=== PATIENT | male | born 1995 | race Two or more races ===

== ENCOUNTER 2018-07-05 10:18 | Emergency (ER) | payer OTHER ==
--- NOTE | 2018-07-05 10:57 | EDM.PDOC ---
ED HPI GENERAL MEDICAL PROBLEM - General Chief Complaint: Laceration Stated Complaint: FINGER LAC Time Seen by Provider: 07/05/18 10:30 Source of Information: Reports: Patient, RN Notes Reviewed History Limitations: Reports: No Limitations - History of Present Illness INITIAL COMMENTS - FREE TEXT/NARRATIVE: Patient is a 22-year-old male who presents to the ED for the evaluation of a finger injury. The patient states he was at work and was lifting some heavy metal when it slipped, crushing his right middle finger between the heavy metal. This resulted in a laceration to the anterior side of his right middle finger. Approximately 3.5 cm and does involve the PIP joint. There is a small abrasion to the posterior side of his right finger as well. The patient is not up-to-date with his tetanus booster. The tendon is visible through the wound. Although the patient has normal strength of the finger with extension and flexion. He is neurovascularly intact, with good sensation and cap refill. - Related Data Allergies Allergy/AdvReac Type Severity Reaction Status Date / Time No Known Allergies Allergy Verified 07/05/18 10:43 Home Meds: Home Meds . [No Known Home Meds] 07/05/18 [History] Past Medical History - Past Health History Medical/Surgical History: Denies Medical/Surgical History Social & Family History - Tobacco Use Smoking Status *Q: Current Some Day Smoker Years of Tobacco use: 2 Packs/Tins Daily: 0.2 - Caffeine Use Caffeine Use: Reports: Coffee, Energy Drinks - Recreational Drug Use Recreational Drug Use: No ED ROS GENERAL - Review of Systems Review Of Systems: See Below Constitutional: Reports: No Symptoms HEENT: Reports: No Symptoms Respiratory: Reports: No Symptoms Cardiovascular: Reports: No Symptoms Endocrine: Reports: No Symptoms GI/Abdominal: Reports: No Symptoms : Reports: No Symptoms Musculoskeletal: Reports: No Symptoms Skin: Reports: Wound (3.5cm linear laceration to anterior right middle finger) Neurological: Denies: Numbness, Tingling Psychiatric: Reports: No Symptoms Hematologic/Lymphatic: Reports: No Symptoms Immunologic: Reports: No Symptoms ED EXAM, SKIN/RASH Exam: See Below Exam Limited By: No Limitations General Appearance: Alert, WD/WN, No Apparent Distress Respiratory/Chest: No Respiratory Distress, Lungs Clear, Normal Breath Sounds, No Accessory Muscle Use, Chest Non-Tender Cardiovascular: Normal Peripheral Pulses, Regular Rate, Rhythm, No Murmur Peripheral Pulses: 3+: Radial (L), Radial (R) Extremities: Normal Range of Motion, Non-Tender, Normal Capillary Refill Neurological: Alert, Oriented, Normal Cognition, No Motor/Sensory Deficits Psychiatric: Normal Affect, Normal Mood Skin: Warm, Dry, Normal Color, No Rash, Wound/Incision (3.5 cm linear laceration to anterior R middle finger, near PIP joint, tendon is exposed but not injured) ED SKIN PROCEDURES - Laceration/Wound Repair Right Anterior Digit - 3rd (Middle) Lac/Wound length In cm: 3.5 Appearance: Linear, Clean Distal NVT: Neuro & Vascular Intact, No Tendon Injury Anesthetic Type: Digital (with local to proximal anterior finger base) Local Anesthesia - Lidocaine (Xylocaine): 1% Plain Local Anesthetic Volume: Other (8) Skin Prep: Chlorhexidine (Hibiciens) Saline Irrigation (cc's): 1,000 Exploration/Debridement/Repair: Wound Explored, In a Bloodless Field, Explored to Base Closed with: Sutures, Dermabond (to posterior aspect over PIP for abrasion) # of Sutures: 12 Suture Type: Prolene, Interrupted, Simple Suture Size: 4-0 Sterile Dressing Applied: Nurse Tetanus Status Addressed: Yes Complications: No Course - Vital Signs Last Recorded V/S: Last Vital Signs Temp 97.8 F 07/05/18 10:20 Pulse 94 07/05/18 10:20 Resp 18 07/05/18 10:20 BP 137/76 07/05/18 10:20 Pulse Ox 100 07/05/18 10:20 - Orders/Labs/Meds Orders: Active Orders 24 hr Category Date Time Status Vaccines to be Administered [RC] PER UNIT ROUTINE Care 07/05/18 10:44 Ordered Meds: Medications Discontinued Medications Generic Name Dose Route Start Last Admin Trade Name Freq PRN Reason Stop Dose Admin Diphtheria/Tetanus/Acell Pertussis 0.5 ml 07/05/18 10:44 07/05/18 11:00 Adacel IM 07/05/18 10:45 0.5 ml .ONCE ONE Administration Lidocaine HCl 10 ml 07/05/18 10:39 07/05/18 11:01 Xylocaine 1% INJECT 07/05/18 10:40 10 ml ONETIME ONE Administration - Re-Assessments/Exams Free Text/Narrative Re-Assessment/Exam: 07/05/18 11:26 Patient presents to the ED for the evaluation of a right middle finger injury. This will need to be repaired with sutures, and an aluminum finger splint will be placed after repair so that the wound may heal appropriately as is located near the PIP joint. The finger x-ray did not show any signs of a fracture at this time. Departure - Departure Time of Disposition: 11:54 Disposition: Home, Self-Care 01 Condition: Fair Clinical Impression: Laceration of right middle finger Qualifiers: Encounter type: initial encounter Damage to nail status: without damage Foreign body presence: without foreign body Qualified Code(s): S61.212A - Laceration without foreign body of right middle finger without damage to nail, initial encounter - Discharge Information *PRESCRIPTION DRUG MONITORING PROGRAM REVIEWED*: No *COPY OF PRESCRIPTION DRUG MONITORING REPORT IN PATIENT DAPHNEY: No Instructions: Stitches, Mateusz, or Adhesive Wound Closure, [id number] Referrals: PCP,None [Primary Care Provider] - Forms: ED Department Discharge, ED Return to Work/School Form Additional Instructions: You have been evaluated in the ED for your laceration. Sutures will need to stay in for 14 days. You may return to the ED or clinic for removal. Please wear the finger splint as much as possible so that the wound can heal appropriately, as it is located over your joint. Please keep this area clean and dry, you may cleanse with regular soap and water. No vigorous scrubbing. Please return to ED if your symptoms change or worsen. - My Orders Last 24 Hours: My Active Orders 07/05/18 10:44 Vaccines to be Administered [RC] PER UNIT ROUTINE - Assessment/Plan Last 24 Hours: My Active Orders 07/05/18 10:44 Vaccines to be Administered [RC] PER UNIT ROUTINE
[2018-07-05] MEDS: Diphtheria,Pertussis(Acell),Tetanus Vaccine 0.5 ML Syringe IM ONE (11:00)
[2018-07-05] MEDS: Lidocaine 1% 10 ML MDV INJECT ONE (11:01)
--- NOTE | 2018-07-05 11:46 | CR ---
Right third finger: Four views of the right third finger were obtained. Comparison: No previous study. Soft tissue swelling and soft tissue injury is seen. Joint spaces within the finger are maintained. No acute fracture, dislocation or other bony abnormality is seen. No radiopaque foreign object is seen. Impression: 1. Soft tissue findings. No bony abnormality is appreciated. Diagnostic code #2
== END 2018-07-05 12:19 | disposition home or self-care (01) ==
LOC: JD.ED 10:18
DX: S61.212A Laceration without foreign body of right middle finger without damage to nail, initial encounter (principal); Z23 Encounter for immunization; F17.210 Nicotine dependence, cigarettes, uncomplicated; W20.8XXA Other cause of strike by thrown, projected or falling object, initial encounter; Y99.0 Civilian activity done for income or pay
CPT/HCPCS: 12002; 73140; 90471; 90700; 99283; J2001; 99282

== ENCOUNTER 2021-01-20 20:42 | Emergency (ER) | payer OTHER ==
--- NOTE | 2021-01-20 21:33 | EDM.PDOC ---
ED HPI GENERAL MEDICAL PROBLEM - General Chief Complaint: Chest Pain Stated Complaint: CHEST PAIN Time Seen by Provider: 01/20/21 21:05 Source of Information: Reports: Patient, Significant Other (Girlfriend) History Limitations: Reports: No Limitations - History of Present Illness INITIAL COMMENTS - FREE TEXT/NARRATIVE: Mr. Leal is a very pleasant 25-year-old gentleman who now presents the ED stating that he developed a sudden-onset tight/sharp pain while sitting, watching television last night. He states that the pain was so severe, he felt like crying. He had associated dyspnea, but no associated nausea, diaphoresis, or sense of impending doom. The symptoms resolved on their own after about 10 minutes. He then developed virtually identical symptoms again tonight, twice, again while watching television around 20:00. The first episode lasted about 5 minutes, the second episode about 4. He again had associated dyspnea, but no associated nausea, diaphoresis, or sense of impending doom. Vannesa's symptoms also resolved on their own without treatment. The patient denies similar symptoms prior to last night. The patient states that he has a history of GERD, for which he takes omeprazole on an as-needed basis. Here in the ED, the patient's initial BP is found to be slightly elevated at 146/81, otherwise, he is hemodynamically stable, afebrile, saturating 98% on room air. He states that at this time he is completely pain-free, feeling back to normal. He appears to be comfortable, in no acute distress. Prior to last night, the patient denies having a recent fever, chills, sore throat, ear pain, nasal or sinus congestion, cough, dyspnea, chest pain, palpitations, nausea, vomiting, constipation, diarrhea, abdominal pain, urinary symptoms, recent weight gain or weight loss, recent bloody bowel movements or black bowel movements, recent joint aches, headaches, or rashes. I reviewed the PMHx/PSHx/SocHx, which was reviewed with the patient by the RN. The patient does not have a PCP. He has received 2 COVID vaccinations + an influenza vaccination this season. - Related Data Allergies Allergy/AdvReac Type Severity Reaction Status Date / Time No Known Allergies Allergy Verified 07/05/18 10:43 Home Meds: Home Meds Rizatriptan Benzoate [Rizatriptan] 10 mg PO ASDIRECTED 01/20/21 [History] ondansetron HCL [Zofran] 4 mg PO ASDIRECTED 01/20/21 [History] Past Medical History Gastrointestinal History: Reports: GERD (untreated) Neurological History: Reports: Migraines Endocrine/Metabolic History: Reports: Obesity/BMI 30+ Social & Family History - Tobacco Use Tobacco Use Status *Q: Former Tobacco User Tobacco Use Within Last Twelve Months: Smokeless Tobacco (former chewed), Vaping (former - nicotine) Years of Tobacco use: 8 Packs/Tins Daily: 0.2 Month/Year Tobacco Last Used: Quit 2019 Tobacco Use Comment: Started smoking 2011 - Caffeine Use Caffeine Use: Reports: Coffee, Soda - Alcohol Use Alcohol Use History: Yes Alcohol Use Frequency: Rarely - Recreational Drug Use Recreational Drug Use: No - Living Situation & Occupation Living situation: Reports: Single, with Significant Other (Girlfriend) Occupation: Employed ED ROS GENERAL - Review of Systems Review Of Systems: Comprehensive ROS is negative, except as noted in HPI. ED EXAM, GENERAL - Physical Exam Exam: See Below Exam Limited By: No Limitations General Appearance: Alert, WD/WN, No Apparent Distress Eye Exam: Bilateral Eye: EOMI, Normal Inspection Ears: Normal External Exam, Hearing Grossly Normal Nose: Normal Inspection Throat/Mouth: Normal Inspection, Normal Lips, Normal Voice, No Airway Compromise Head: Atraumatic, Normocephalic Neck: Normal Inspection, Full Range of Motion Respiratory/Chest: No Respiratory Distress, Lungs Clear, Normal Breath Sounds, No Accessory Muscle Use, Chest Non-Tender (including the sternum) Cardiovascular: Normal Peripheral Pulses, Regular Rate, Rhythm, No Edema, No Gallop, No JVD, No Murmur, No Rub Peripheral Pulses: 3+: Radial (L), Radial (R) GI/Abdominal: Normal Bowel Sounds, Soft, Non-Tender (including the epigastrium), No Organomegaly, No Distention, No Abnormal Bruit, No Mass Back Exam: Normal Inspection, Full Range of Motion, NT Extremities: Normal Inspection, Normal Range of Motion, No Pedal Edema, Normal Capillary Refill Neurological: Alert, Oriented, Normal Cognition, No Motor/Sensory Deficits Psychiatric: Normal Affect Skin Exam: Warm, Dry, Intact, Normal Color, No Rash #1 Interpretation EKG Date: 01/20/21 Time: 21:20 Rhythm: NSR Rate (Beats/Min): 94 [place]: Normal P-Wave: Present QRS: Normal ST-T: Normal QT: Normal Comparison: NA - No Prior EKG Course - Vital Signs Last Recorded V/S: Last Vital Signs Temp 36.8 C 01/20/21 21:01 Pulse 98 01/20/21 21:01 Resp 20 01/20/21 21:01 BP 146/81 H 01/20/21 21:01 Pulse Ox 98 01/20/21 21:01 - Orders/Labs/Meds Orders: Active Orders 24 hr Category Date Time Status EKG 12 Lead [EK] Stat Ther 01/20/21 21:00 Ordered Meds: Medications Discontinued Medications Generic Name Dose Route Start Last Admin Trade Name Venita PRN Reason Stop Dose Admin Famotidine 40 mg 01/20/21 21:39 Famotidine 20 Mg Tab PO 01/20/21 21:40 ONETIME STA - Re-Assessments/Exams Free Text/Narrative Re-Assessment/Exam: 01/20/21 21:31 The patient's history and physical examination strongly suggest GERD as the cause of his chest pain. There is nothing about his history that suggests a cardiac etiology. After that was explained to the patient, he declined further work-up beyond the ECG that was obtained at triage. 01/20/21 21:39 The patient's ECG is completely normal, with no suggestion of ischemia. Again, his pain is most likely due to GERD. I will start him on famotidine, and recommend that he begin taking 1 tablet of famotidine twice a day for 1 week, then decrease the dosage to 1 tablet once a day. If his symptoms return after he decreases the dosage, he should return to a twice daily dosage, but if he has symptoms while taking 1 tablet twice a day, he will need to switch to a PPI, and under the circumstances, I recommended that he undergo an EGD. Departure - Departure Time of Disposition: 21:40 Disposition: Home, Self-Care 01 Condition: Good Clinical Impression: GERD (gastroesophageal reflux disease) - Discharge Information *PRESCRIPTION DRUG MONITORING PROGRAM REVIEWED*: Not Applicable *COPY OF PRESCRIPTION DRUG MONITORING REPORT IN PATIENT DAPHNEY: Not Applicable Referrals: PCP,None [Primary Care Provider] - Sandy Cuenca NP [Nurse Practitioner] - Forms: ED Department Discharge Additional Instructions: You were seen in the emergency room after developing sudden onset tight/sharp chest pain last night, then twice again tonight. Work-up in the ER included an ECG, which was completely normal. Based on your history, physical exam, and ER ECG, the cause of your chest pain was most likely acid reflux, also known as GERD. You have been started on the antacid medicine famotidine (Pepcid). Famotidine is available [id number], and generic famotidine is just as good as name- brand Pepcid. We recommend that you take 1 tablet of famotidine every 12 hours for 7 days, then decrease the dosage to 1 tablet once a day. If your GERD symptoms return after decreasing the dosage to once a day, you may return to a twice daily dosage. If you still have symptoms despite taking famotidine twice a day, you may need to switch to a stronger proton pump inhibitor, however, under those circumstances, we recommend that you undergo an EGD (scope of the stomach). In that case, please follow-up with Sandy Cuenca NP, or one of the other providers in the clinic, to establish a PCP and make those arrangements. If any other problems, please do not hesitate to return to the ER. Sepsis Event Note (ED) - Focused Exam Vital Signs: Vital Signs Temp Pulse Resp BP Pulse Ox 01/20/21 21:01 36.8 C 98 20 146/81 H 98 - My Orders Last 24 Hours: My Active Orders 01/20/21 21:00 EKG 12 Lead [EK] Stat - Assessment/Plan Last 24 Hours: My Active Orders 01/20/21 21:00 EKG 12 Lead [EK] Stat
[2021-01-20] MEDS ORDERED: Famotidine 20 MG Tab PO STA (21:39)
== END 2021-01-20 22:04 | disposition home or self-care (01) ==
LOC: JD.ED 20:42
DX: K21.9 Gastro-esophageal reflux disease without esophagitis (principal); E66.9 Obesity, unspecified; Z68.38 Body mass index [BMI] 38.0-38.9, adult; Z87.891 Personal history of nicotine dependence
CPT/HCPCS: 93005; 93010; 99284; 99284-25

== ENCOUNTER 2021-07-06 22:55 | Emergency (ER) | payer OTHER ==
[2021-07-06] MEDS ORDERED: Ketorolac 15 MG/ML SDV IM ONE (23:19)
[2021-07-06] MEDS ORDERED: Benzonatate 100 MG Cap PO ONE (23:19)
[2021-07-07 00:15] LABS: CORONAVIRUS COVID-19 NAA NEGATIVE (NEGATIVE)
== END 2021-07-07 01:05 | disposition home or self-care (01) ==
LOC: JD.ED 22:55
DX: J06.9 Acute upper respiratory infection, unspecified (principal); E66.9 Obesity, unspecified; Z68.38 Body mass index [BMI] 38.0-38.9, adult; Z20.822 Contact with and (suspected) exposure to COVID-19
CPT/HCPCS: 0241U; 36415; 86308; 87070; 96372; 99283; A9270; J1885

== ENCOUNTER 2021-08-03 22:55 | Emergency (ER) | payer OTHER ==
[2021-08-03] MEDS ORDERED: Ondansetron 4 MG/2 ML SDV IVPUSH ONE (23:33)
[2021-08-03] MEDS ORDERED: Lactated Ringers 1,000 ML IV ONE (23:33)
[2021-08-03] MEDS ORDERED: Ketorolac 15 MG/ML SDV IVPUSH ONE (23:33)
== END 2021-08-04 00:58 | disposition home or self-care (01) ==
LOC: JD.ED 22:55
DX: N20.0 Calculus of kidney (principal); E66.9 Obesity, unspecified; Z68.37 Body mass index [BMI] 37.0-37.9, adult
CPT/HCPCS: 36415; 74176; 80053; 81001; 83690; 85025; 96361; 96374; 96375; 99284; J1885; J2405; J7120

== ENCOUNTER 2023-02-18 15:37 | Emergency (ER) | payer OTHER ==
[2023-02-18 16:46] LABS: BASOPHILS ABSOLUTE AUTO 0.1 K/mm3 (0.0-0.2); BASOPHILS PERCENT AUTO 0.8 % (0.0-1.0); EOSINOPHILS ABSOLUTE AUTO 0.1 K/mm3 (0.0-0.4); EOSINOPHILS PERCENT AUTO 1.6 % (0.0-6.0); HEMATOCRIT 44.1 % (42.0-52.0); HEMOGLOBIN 15.8 gm/dl (14.0-18.0); IMMATURE GRAN ABSOLUTE AUTO 0.08 K/mm3 (0.00-0.05); IMMATURE GRAN PERCENT AUTO 0.9 % (0.0-0.4); LYMPHOCYTES ABSOLUTE AUTO 0.5 K/mm3 (1.0-4.8); LYMPHOCYTES PERCENT AUTO 5.9 % (24.0-44.0); MEAN CORPUSCULAR HEMOGLOBIN 30.7 pg (28.0-32.0); MEAN CORPUSCULAR HGB CONC 35.8 g/dl (32.0-36.0); MEAN CORPUSCULAR VOLUME 85.8 fl (83.0-99.0); MEAN PLATELET VOLUME 9.1 fl (9.4-12.4); MONOCYTES ABSOLUTE AUTO 1.2 K/mm3 (0.0-0.8); MONOCYTES PERCENT AUTO 14.2 % (0.0-8.0); NEUTROPHILS ABSOLUTE AUTO 6.7 K/mm3 (1.8-7.7); NEUTROPHILS PERCENT AUTO 76.6 % (41.0-71.0); PLATELET COUNT,PLT 249 K/mm3 (150-400); RED BLOOD CELL COUNT 5.14 M/mm3 (4.52-5.90); WHITE BLOOD CELL COUNT,WBC 8.74 K/mm3 (3.9-11.3)
[2023-02-18 16:48] LABS: CORONAVIRUS COVID-19 NAA POSITIVE (NEGATIVE); INFLUENZA A NAA NEGATIVE (NEGATIVE); RESPIRATORY SYNCYTIAL VIR NAA NEGATIVE (NEGATIVE)
[2023-02-18 16:50] LABS: APPEARANCE,URINE CLEAR (Clear); BILIRUBIN,URINE NEGATIVE (Negative); COLOR,URINE YELLOW (Yellow); GLUCOSE,URINE NEGATIVE (Negative); KETONES,URINE TRACE (Negative); LEUKOCYTE ESTERASE,URINE NEGATIVE (Negative); NITRITE,URINE NEGATIVE (Negative); OCCULT BLOOD,URINE 2+ (Negative); PH,URINE 7.5 (5.0-8.0); PROTEIN,URINE NEGATIVE (Negative)
[2023-02-18 16:53] LABS: BACTERIA,URINE FEW /hpf (FEW); MUCUS,URINE FEW /hpf (FEW); RBC,URINE 40-50 /hpf (0-5); SQUAMOUS EPITHELIAL CELLS,UR 0-5 /hpf (0-5); WBC,URINE 0-5 /hpf (0-5)
[2023-02-18 17:02] LABS: ALBUMIN 3.8 g/dl (3.4-5.0); ANION GAP 14.4 (5-15); BILIRUBIN TOTAL 0.4 mg/dL (0.2-1.0); BUN/CREATININE RATIO 14.5 (14-18); C-REACTIVE PROTEIN 1.6 mg/dL (<1.0); CREATININE 1.1 mg/dL (0.7-1.3); EST CRCL DRUG DOSING (CG) 87.75 mL/min; MAGNESIUM 1.5 mg/dL (1.8-2.4); POTASSIUM,K 3.4 mEq/L (3.5-5.1); PROTEIN TOTAL,TP 7.7 g/dl (6.4-8.2)
== END 2023-02-18 18:03 | disposition home or self-care (01) ==
LOC: JD.ED 15:37
DX: U07.1 COVID-19 (principal); R31.9 Hematuria, unspecified; E66.9 Obesity, unspecified; Z68.38 Body mass index [BMI] 38.0-38.9, adult
CPT/HCPCS: 0241U; 36415; 80053; 81001; 83735; 85025; 86140; 99283

== ENCOUNTER 2023-06-24 18:41 | Emergency (ER) | payer OTHER ==
[2023-06-24] MEDS: Cephalexin 500 MG Cap PO ONE (19:47)
== END 2023-06-24 19:47 | disposition home or self-care (01) ==
LOC: JD.ED 18:41
DX: S67.192A Crushing injury of right middle finger, initial encounter (principal); F17.210 Nicotine dependence, cigarettes, uncomplicated; E66.9 Obesity, unspecified; Z79.899 Other long term (current) drug therapy; Z68.41 Body mass index [BMI] 40.0-44.9, adult; W22.8XXA Striking against or struck by other objects, initial encounter
CPT/HCPCS: 73140; 99283; A9270

== ENCOUNTER 2024-02-25 13:34 | Emergency (ER) | payer OTHER ==
[2024-02-25 14:40] LABS: ANION GAP 14.9 (5-15); CALCIUM 8.9 mg/dL (8.5-10.1); CREATININE 0.9 mg/dL (0.7-1.3); EST CRCL DRUG DOSING (CG) 106.3 mL/min; MAGNESIUM 1.9 mg/dL (1.8-2.4)
[2024-02-25 14:44] LABS: POTASSIUM,K 3.9 mEq/L (3.5-5.1)
== END 2024-02-25 17:25 | disposition home or self-care (01) ==
LOC: JD.ED 13:34
DX: M79.661 Pain in right lower leg (principal); E66.9 Obesity, unspecified; Z68.41 Body mass index [BMI] 40.0-44.9, adult
CPT/HCPCS: 36415; 73590-26-RT; 73590-RT; 80048; 83735; 93971-26-RT; 93971-RT; 99283

== ENCOUNTER 2025-01-26 04:26 | Emergency (ER) | payer OTHER ==
[2025-01-26] MEDS ORDERED: Naloxone 0.4 MG/ML SDV IVPUSH PRN (05:34)
[2025-01-26] MEDS: Ketorolac 60 MG/2 ML SDV IM ONE (05:44)
[2025-01-26] MEDS: Ondansetron 4 MG Tab.DIS PO STA (05:44)
== END 2025-01-26 06:00 | disposition home or self-care (01) ==
LOC: JD.ED 04:26
DX: G43.119 Migraine with aura, intractable, without status migrainosus (principal)
CPT/HCPCS: 96372; 99283; A9270; J1885; 99284; J1171